=== PATIENT | male | born 1995 | race Caucasian/White ===

== ENCOUNTER 2018-08-15 19:05 | Emergency (ER) | payer BC ==
[2018-08-15] MEDS ORDERED: Famotidine/PF 20 mg/2ml Vial ONE (19:11)
[2018-08-15] MEDS ORDERED: diphenhydrAMINE 50 MG/ML VIAL ONE (19:11)
[2018-08-15] MEDS ORDERED: methylPREDNISolone Sod Succ/PF 125 MG/2 ML VIAL ONE (19:11)
--- NOTE | 2018-08-15 19:25 | RAD ---
PORTABLE CHEST: 08/15/18 HISTORY: Wheezing and cough. Heart size and mediastinum are within normal limits. The lungs are clear of infiltrates. No significa nt bony findings. IMPRESSION: No active intrathoracic disease. POS: [facility]
== END 2018-08-15 20:48 | disposition home or self-care (01) ==
LOC: SCSER 19:05
DX: T78.40XA Allergy, unspecified, initial encounter (principal); F17.220 Nicotine dependence, chewing tobacco, uncomplicated
CPT/HCPCS: 71045; 96361; 96374; 96375; J1200; J2930; S0028